=== PATIENT | male | born 1950 | race Caucasian/White ===

== ENCOUNTER → 2017-09-12 08:56 | Outpatient (CLI) | payer MEDICARE, SELFPAY ==
[2017-09-12 12:27] LABS: Cholesterol 140 mg/dL (200); Hemoglobin A1c 7.2 % (4.2-6.3); High Density Lipoprotein 31 mg/dL; Triglycerides 148 mg/dL; Very Low Density Lipoprotein 30 mg/dL (5-40)
== END ==
PROVIDERS: Family Provider Family Medicine; PCP Family Medicine; Visit Provider Family Medicine
DX: E11.29 Type 2 diabetes mellitus with other diabetic kidney complication (principal)
CPT/HCPCS: 36415; 80061; 83036

== ENCOUNTER → 2017-10-27 14:58 | Outpatient (CLI) | payer MEDICARE, SELFPAY ==
[2017-10-27 18:05] LABS: Hematocrit 44.2 % (40-54); Hemoglobin 13.6 g/dl (13.0-16.5); Mean Corp Hgb Conc 30.8 g/gl (32-36); Mean Corpuscular Hgb 31.1 pg (27.0-32.0); Mean Corpuscular Volume 100.9 fL (80-94); Mean Platelet Vol. 12.1 fl (6.2-12.0); Platelet Count 189 K/mm3 (150-450); RBC Distribution Width CV 13.3 % (11.6-14.6); RBC Distribution Width SD 49.5 fl (35.1-43.9); Red Blood Count 4.38 M/mm3 (4.6-6.2); White Blood Count 7.4 K/mm3 (4.4-11.0)
[2017-10-27 18:18] LABS: Scan Indicated on CBC? Y/N NO
[2017-10-27 18:21] LABS: Vitamin D,25 Hydroxy 23.1 ng/mL (29.95-100.01)
[2017-10-27 18:25] LABS: Albumin, Serum 4.2 g/dL (3.2-5.0); BUN 23 mg/dL (7-18); BUN/Creat Ratio 16.1 RATIO (10-20); Calcium,Total 8.9 mg/dL (8.5-10.1); Chloride 102 mmol/L (98-107); Creatinine, Serum 1.43 mg/dL (0.70-1.30); EST Glomerular Filtration Rate 53 mL/min (>60); Est Glom Filt Rate - Afr Amer 64 mL/min (>60); Glucose 145 mg/dL (74-106); PTHIN 138.4 pg/mL (18.4-80.1); Phosphorus 2.8 mg/dL (2.5-4.9); Sodium Level 140 mmol/L (136-145)
[2017-10-27 18:26] LABS: Protein, Urine (Random) 39.1 mg/dL (<11.9); Protein:Creat Ratio 149 mg/g CRE (0-200)
== END ==
PROVIDERS: Family Provider Family Medicine; PCP Family Medicine; Visit Provider Internal Medicine Nephrology
DX: N18.3 Chronic kidney disease, stage 3 (moderate) (principal); N25.81 Secondary hyperparathyroidism of renal origin
CPT/HCPCS: 36415; 80069; 82306; 82570; 83970; 84156; 85027

== ENCOUNTER → 2018-07-29 14:25 | Outpatient (CLI) | payer MEDICARE, SELFPAY ==
[2018-07-29 15:57] LABS: Absolute Neutrophil Count 5.9 X10^3/uL (2.0-7.7); Basophil# 0.01 X10^3/uL; Basophil% 0.1 % (0-1); Eosinophil# 0.45 X10^3/uL; Eosinophils% 5.6 % (0-5); Hematocrit 44.1 % (40-54); Hemoglobin 13.9 g/dl (13.0-16.5); Lymphocyte % 14.9 % (19-41); Mean Corp Hgb Conc 31.5 g/gl (32-36); Mean Corpuscular Hgb 31.7 pg (27.0-32.0); Mean Corpuscular Volume 100.7 fL (80-94); Mean Platelet Vol. 12.3 fl (6.2-12.0); Monocyte# 0.53 X10^3/uL; Monocyte% 6.6 % (0-10); Neutrophil # 5.87 X10^3/uL (2.7-7.7); Neutrophil % 72.6 % (47-70); Platelet Count 171 K/mm3 (150-450); RBC Distribution Width SD 47.5 fl (35.1-43.9); Red Blood Count 4.38 M/mm3 (4.6-6.2); White Blood Count 8.1 K/mm3 (4.4-11.0)
[2018-07-29 16:07] LABS: Protein, Urine (Random) 18.8 mg/dL (<11.9); Protein:Creat Ratio 154 mg/g CRE (0-200)
[2018-07-29 16:17] LABS: POSITIVE COUNT NO; POSITIVE DIFFERENTIAL NO; POSITIVE MORPHOLOGY NO
[2018-07-29 16:27] LABS: Albumin, Serum 4.3 g/dL (3.2-5.0); BUN 25 mg/dL (7-18); BUN/Creat Ratio 15.7 RATIO (10-20); Calcium,Total 9.1 mg/dL (8.5-10.1); Chloride 107 mmol/L (98-107); Creatinine, Serum 1.59 mg/dL (0.70-1.30); EST Glomerular Filtration Rate 46 mL/min (>60); Est Glom Filt Rate - Afr Amer 56 mL/min (>60); Glucose 203 mg/dL (74-106); Phosphorus 2.5 mg/dL (2.5-4.9); Potassium 3.8 mmol/L (3.5-5.1); Sodium Level 141 mmol/L (136-145)
[2018-07-29 16:45] LABS: PTHIN 103.5 pg/mL (18.4-80.1)
[2018-07-29 16:47] LABS: Vitamin D,25 Hydroxy 27.9 ng/mL (29.95-100.01)
== END ==
PROVIDERS: Family Provider Family Medicine; PCP Family Medicine; Visit Provider Internal Medicine Nephrology
DX: N18.3 Chronic kidney disease, stage 3 (moderate) (principal); N25.81 Secondary hyperparathyroidism of renal origin
CPT/HCPCS: 36415; 80069; 82306; 82570; 83970; 84156; 85025

== ENCOUNTER → 2019-03-10 09:14 | Outpatient (CLI) | payer MEDICARE, SELFPAY ==
[2019-03-10 12:36] LABS: Cholesterol 148 mg/dL (200); High Density Lipoprotein 40 mg/dL; Triglycerides 209 mg/dL; Very Low Density Lipoprotein 42 mg/dL (5-40)
== END ==
PROVIDERS: Family Provider Family Medicine; PCP Family Medicine; Visit Provider Family Medicine
DX: Z00.01 Encounter for general adult medical examination with abnormal findings (principal); I12.9 Hypertensive chronic kidney disease with stage 1 through stage 4 chronic kidney disease, or unspecified chronic kidney disease; E11.22 Type 2 diabetes mellitus with diabetic chronic kidney disease; N18.3 Chronic kidney disease, stage 3 (moderate); E11.29 Type 2 diabetes mellitus with other diabetic kidney complication; E78.5 Hyperlipidemia, unspecified; E66.9 Obesity, unspecified
CPT/HCPCS: 36415; 80061

== ENCOUNTER → 2019-05-07 11:12 | Outpatient (CLI) | payer MEDICARE, SELFPAY ==
[2019-05-07 11:47] LABS: Hematocrit 43.4 % (40-54); Hemoglobin 13.6 g/dL (13.0-16.5); Mean Corp Hgb Conc 31.3 g/dL (32-36); Mean Corpuscular Hgb 32.2 pg (27.0-32.0); Mean Corpuscular Volume 102.8 fL (80-94); Mean Platelet Vol. 11.8 fl (6.2-12.0); Platelet Count 160 K/mm3 (150-450); RBC Distribution Width CV 12.4 % (11.6-14.6); RBC Distribution Width SD 46.7 fl (35.1-43.9); Red Blood Count 4.22 M/mm3 (4.6-6.2); White Blood Count 7.5 K/mm3 (4.4-11.0)
[2019-05-07 11:59] LABS: Protein, Urine (Random) 34.8 mg/dL (<11.9); Protein:Creat Ratio 156 mg/g CRE (0-200)
[2019-05-07 12:16] LABS: Albumin, Serum 3.9 g/dL (3.2-5.0); BUN 22 mg/dL (7-18); BUN/Creat Ratio 13.2 RATIO (10-20); Calcium,Total 8.7 mg/dL (8.5-10.1); Chloride 108 mmol/L (98-107); Creatinine, Serum 1.67 mg/dL (0.70-1.30); EST Glomerular Filtration Rate 44 mL/min (>60); Est Glom Filt Rate - Afr Amer 53 mL/min (>60); Glucose 168 mg/dL (74-106); Phosphorus 2.6 mg/dL (2.5-4.9); Potassium 4.2 mmol/L (3.5-5.1); Sodium Level 142 mmol/L (136-145)
[2019-05-07 12:26] LABS: PTHIN 144.8 pg/mL (18.4-80.1); Vitamin D,25 Hydroxy 35.4 ng/mL (29.95-100.01)
== END ==
PROVIDERS: Family Provider Family Medicine; PCP Family Medicine; Referring Provider Internal Medicine Nephrology; Visit Provider Internal Medicine Nephrology
DX: N18.3 Chronic kidney disease, stage 3 (moderate) (principal); N25.81 Secondary hyperparathyroidism of renal origin
CPT/HCPCS: 36415; 80069; 82306; 82570; 83970; 84156; 85027

== ENCOUNTER → 2019-09-08 09:34 | Outpatient (CLI) | payer MEDICARE, SELFPAY ==
[2019-09-08 12:36] LABS: Cholesterol 162 mg/dL (200); High Density Lipoprotein 33 mg/dL; Triglycerides 240 mg/dL; Very Low Density Lipoprotein 48 mg/dL (5-40)
[2019-09-08 12:53] LABS: Hemoglobin A1c 11.2 % (4.2-6.3)
== END ==
PROVIDERS: Family Provider Family Medicine; PCP Family Medicine; Visit Provider Family Medicine
DX: E11.29 Type 2 diabetes mellitus with other diabetic kidney complication (principal); E78.5 Hyperlipidemia, unspecified
CPT/HCPCS: 36415; 80061; 83036

== ENCOUNTER → 2020-01-24 13:30 | Outpatient (CLI) | payer MEDICARE, SELFPAY ==
[2020-01-24 15:25] LABS: Hematocrit 41.3 % (40-54); Hemoglobin 13.1 g/dL (13.0-16.5); Mean Corp Hgb Conc 31.7 g/dL (32-36); Mean Corpuscular Hgb 32.4 pg (27.0-32.0); Mean Corpuscular Volume 102.2 fL (80-94); Mean Platelet Vol. 12.8 fl (6.2-12.0); Platelet Count 181 K/mm3 (150-450); RBC Distribution Width SD 49.1 fl (35.1-43.9); Red Blood Count 4.04 M/mm3 (4.6-6.2); White Blood Count 6.7 K/mm3 (4.4-11.0)
[2020-01-24 15:36] LABS: Vitamin D,25 Hydroxy 39.8 ng/mL
[2020-01-24 15:45] LABS: Protein, Urine (Random) 27.9 mg/dL (<11.9); Protein:Creat Ratio 111 mg/g CRE (0-200)
[2020-01-24 15:51] LABS: Albumin, Serum 4.3 g/dL (3.2-5.0); BUN 37 mg/dL (7-18); BUN/Creat Ratio 19.1 RATIO (10-20); Calcium,Total 9.2 mg/dL (8.5-10.1); Chloride 105 mmol/L (98-107); Creatinine, Serum 1.94 mg/dL (0.70-1.30); EST Glomerular Filtration Rate 37 mL/min (>60); Est Glom Filt Rate - Afr Amer 44 mL/min (>60); Glucose 188 mg/dL (74-106); Phosphorus 2.7 mg/dL (2.5-4.9); Potassium 3.9 mmol/L (3.5-5.1); Sodium Level 141 mmol/L (136-145)
[2020-01-24 16:43] LABS: PTHIN 158.1 pg/mL (18.4-80.1)
== END ==
PROVIDERS: PCP Family Medicine; Visit Provider Internal Medicine Nephrology
DX: N18.3 Chronic kidney disease, stage 3 (moderate) (principal); N25.81 Secondary hyperparathyroidism of renal origin
CPT/HCPCS: 36415; 80069; 82306; 82570; 83970; 84156; 85027

== ENCOUNTER → 2020-08-12 09:04 | Outpatient (CLI) | payer MEDICARE, SELFPAY ==
[2020-08-12 09:47] LABS: Protein, Urine (Random) 27.1 mg/dL (<11.9); Protein:Creat Ratio 132 mg/g CRE (0-200)
[2020-08-12 09:48] LABS: Anion Gap 5 (5-15); BUN 35 mg/dL (7-18); BUN/Creat Ratio 18.7 RATIO (10-20); Chloride 105 mmol/L (98-107); Creatinine, Serum 1.87 mg/dL (0.70-1.30); EST Glomerular Filtration Rate 38 mL/min (>60); Est Glom Filt Rate - Afr Amer 46 mL/min (>60); Glucose 169 mg/dL (74-106); Potassium 3.2 mmol/L (3.5-5.1); Sodium Level 143 mmol/L (136-145)
== END ==
PROVIDERS: PCP Family Medicine; Referring Provider Internal Medicine Nephrology; Visit Provider Internal Medicine Nephrology
DX: N18.30 Chronic kidney disease, stage 3 unspecified (principal)
CPT/HCPCS: 36415; 80048; 82570; 84156

== ENCOUNTER → 2020-09-12 11:37 | Outpatient (CLI) | payer MEDICARE, SELFPAY ==
[2020-09-12 15:40] LABS: Cholesterol 157 mg/dL (200); High Density Lipoprotein 34 mg/dL; Triglycerides 243 mg/dL; Very Low Density Lipoprotein 49 mg/dL (5-40)
== END ==
PROVIDERS: PCP Family Medicine; Visit Provider Family Medicine
DX: E11.29 Type 2 diabetes mellitus with other diabetic kidney complication (principal); I10 Essential (primary) hypertension
CPT/HCPCS: 36415; 80061; 83036

== ENCOUNTER 2020-10-27 15:11 | Outpatient (RCR) | payer MEDICARE, SELFPAY ==
[2020-10-27] MEDS: COVID-19 VACC, MRNA(PFIZER)/PF 30 MCG/0.3 ML SYRINGE IM (12:09)
[2020-11-17] MEDS: COVID-19 VACC, MRNA(PFIZER)/PF 30 MCG/0.3 ML SYRINGE IM (12:02)
== END 2020-10-27 23:59 ==
LOC: IMMUN 15:11
PROVIDERS: PCP Family Medicine; Visit Provider Family Medicine
DX: Z23 Encounter for immunization (principal)
CPT/HCPCS: 0001A; 0002A; 91300

== ENCOUNTER → 2020-12-13 13:02 | Outpatient (CLI) | payer MEDICARE, SELFPAY ==
[2020-12-13 15:33] LABS: Hemoglobin A1c 7.9 % (3.8-5.6)
== END ==
PROVIDERS: PCP Family Medicine; Referring Provider Family Medicine; Visit Provider Family Medicine
DX: E11.29 Type 2 diabetes mellitus with other diabetic kidney complication (principal)
CPT/HCPCS: 36415; 83036

== ENCOUNTER → 2022-04-25 | Outpatient (CLI) | payer MEDICARE, SELFPAY ==
[2022-04-25 12:12] LABS: Hematocrit 43.8 % (40-54); Mean Corpuscular Hgb 32.2 pg (27.0-32.0); Mean Corpuscular Volume 100.7 fL (80-94); Mean Platelet Vol. 12.5 fl (6.2-12.0); Platelet Count 193 K/mm3 (150-450); RBC Distribution Width CV 13.2 % (11.6-14.6); RBC Distribution Width SD 49.9 fl (35.1-43.9); Red Blood Count 4.35 M/mm3 (4.6-6.2); White Blood Count 8.4 K/mm3 (4.4-11.0)
[2022-04-25 12:57] LABS: PTHIN 124.4 pg/mL (18.4-80.1)
[2022-04-25 12:58] LABS: Protein:Creat Ratio 142 mg/g CRE (0-200)
[2022-04-25 12:59] LABS: Albumin, Serum 3.8 g/dL (3.2-5.0); BUN 29 mg/dL (7-18); BUN/Creat Ratio 16.3 RATIO (10-20); Calcium,Total 9.2 mg/dL (8.5-10.1); Chloride 103 mmol/L (98-107); Creatinine, Serum 1.78 mg/dL (0.70-1.30); EST Glomerular Filtration Rate 40 mL/min (>60); Est Glom Filt Rate - Afr Amer 49 mL/min (>60); Glucose 152 mg/dL (74-106); Phosphorus 2.3 mg/dL (2.5-4.9); Potassium 3.7 mmol/L (3.5-5.1); Sodium Level 141 mmol/L (136-145)
== END | disposition home or self-care (01) ==
LOC: MTLAB 10:22
PROVIDERS: PCP Family Medicine; Referring Provider Internal Medicine Nephrology; Visit Provider Internal Medicine Nephrology
DX: N18.32 Chronic kidney disease, stage 3b (principal); N25.81 Secondary hyperparathyroidism of renal origin
CPT/HCPCS: 36415; 80069; 82306; 82570; 83970; 84156; 85027

== ENCOUNTER → 2023-04-11 | Outpatient (CLI) | payer MEDICARE, SELFPAY ==
[2023-04-11 14:58] LABS: Hematocrit 42.5 % (40-54); Hemoglobin 13.7 g/dL (13.0-16.5); Mean Corp Hgb Conc 32.2 g/dL (32-36); Mean Corpuscular Hgb 32.9 pg (27.0-32.0); Mean Corpuscular Volume 102.2 fL (80-94); Mean Platelet Vol. 12.3 fl (6.2-12.0); Platelet Count 214 K/mm3 (150-450); RBC Distribution Width CV 13.6 % (11.6-14.6); RBC Distribution Width SD 51.4 fl (35.1-43.9); Red Blood Count 4.16 M/mm3 (4.6-6.2); White Blood Count 11.6 K/mm3 (4.4-11.0)
[2023-04-11 15:22] LABS: Protein, Urine (Random) 42.9 mg/dL (<11.9); Protein:Creat Ratio 93 mg/g CRE (0-200)
[2023-04-11 16:36] LABS: Albumin, Serum 3.9 g/dL (3.2-5.0); BUN 36 mg/dL (7-18); BUN/Creat Ratio 18.6 RATIO (10-20); Calcium,Total 8.8 mg/dL (8.5-10.1); Chloride 105 mmol/L (98-107); Creatinine, Serum 1.94 mg/dL (0.70-1.30); EST Glomerular Filtration Rate 36 mL/min (>60); Est Glom Filt Rate - Afr Amer 44 mL/min (>60); Glucose 196 mg/dL (74-106); Phosphorus 2.3 mg/dL (2.5-4.9); Potassium 4.3 mmol/L (3.5-5.1); Sodium Level 142 mmol/L (136-145)
[2023-04-15 14:47] LABS: Vitamin D,25 Hydroxy 42.7 ng/mL
[2023-04-15 14:59] LABS: PTHIN 162.3 pg/mL (18.4-80.1)
== END | disposition home or self-care (01) ==
LOC: LAB 13:22
PROVIDERS: PCP Family Medicine; Referring Provider Internal Medicine Nephrology; Visit Provider Internal Medicine Nephrology
DX: N25.81 Secondary hyperparathyroidism of renal origin (principal); N18.32 Chronic kidney disease, stage 3b
CPT/HCPCS: 36415; 80069; 82306; 82570; 83970; 84156; 85027

== ENCOUNTER → 2023-12-25 | Outpatient (CLI) | payer MEDICARE, SELFPAY ==
[2023-12-25 12:56] LABS: Cholesterol 150 mg/dL (200); High Density Lipoprotein 35 mg/dL; PSA,Total - Annual Screen 0.66 ng/mL (0.00-4.00); Triglycerides 171 mg/dL; Very Low Density Lipoprotein 34 mg/dL (5-40)
== END | disposition home or self-care (01) ==
LOC: BFHLAB 08:46
PROVIDERS: PCP Family Medicine; Referring Provider Family Medicine; Visit Provider Family Medicine
DX: E11.29 Type 2 diabetes mellitus with other diabetic kidney complication (principal); Z12.5 Encounter for screening for malignant neoplasm of prostate
CPT/HCPCS: 36415; 80061; 84153; G0103

== ENCOUNTER → 2024-04-09 | Outpatient (CLI) | payer MEDICARE, SELFPAY ==
[2024-04-09 09:35] LABS: Hematocrit 41.8 % (40-54); Hemoglobin 13.7 g/dL (13.0-16.5); Mean Corp Hgb Conc 32.8 g/dL (32-36); Mean Corpuscular Hgb 32.5 pg (27.0-32.0); Mean Corpuscular Volume 99.3 fL (80-94); Mean Platelet Vol. 11.3 fl (6.2-12.0); Platelet Count 149 K/mm3 (150-450); RBC Distribution Width CV 13.3 % (11.6-14.6); RBC Distribution Width SD 48.8 fl (35.1-43.9); Red Blood Count 4.21 M/mm3 (4.6-6.2); White Blood Count 7.3 K/mm3 (4.4-11.0)
[2024-04-09 10:04] LABS: Albumin, Serum 3.8 g/dL (3.2-5.0); BUN 41 mg/dL (7-18); BUN/Creat Ratio 19.9 RATIO (10-20); Calcium,Total 9.3 mg/dL (8.5-10.1); Chloride 107 mmol/L (98-107); Creatinine, Serum 2.06 mg/dL (0.70-1.30); EST Glomerular Filtration Rate 34 mL/min (>60); Est Glom Filt Rate - Afr Amer 41 mL/min (>60); Glucose 160 mg/dL (74-106); Phosphorus 2.9 mg/dL (2.5-4.9); Potassium 3.7 mmol/L (3.5-5.1); Sodium Level 141 mmol/L (136-145)
[2024-04-09 10:08] LABS: PTHIN 180.7 pg/mL (18.4-80.1); Vitamin D,25 Hydroxy 31.3 ng/mL
[2024-04-09 10:19] LABS: Protein:Creat Ratio 95 mg/g CRE (0-200)
== END | disposition home or self-care (01) ==
LOC: LAB 08:59
PROVIDERS: PCP Family Medicine; Referring Provider Internal Medicine Nephrology; Visit Provider Internal Medicine Nephrology
DX: N18.32 Chronic kidney disease, stage 3b (principal); N25.81 Secondary hyperparathyroidism of renal origin
CPT/HCPCS: 36415; 80069; 82306; 82570; 83970; 84156; 85027

== ENCOUNTER → 2025-05-09 | Outpatient (CLI) | payer MEDICARE, SELFPAY ==
[2025-05-09 14:35] LABS: Hematocrit 42.9 % (40-54); Hemoglobin 13.7 g/dL (13.0-16.5); Mean Corp Hgb Conc 31.9 g/dL (32-36); Mean Corpuscular Volume 101.2 fL (80-94); Mean Platelet Vol. 12.1 fl (6.2-12.0); Platelet Count 177 K/mm3 (150-450); RBC Distribution Width CV 13.3 % (11.6-14.6); RBC Distribution Width SD 49.3 fl (35.1-43.9); Red Blood Count 4.24 M/mm3 (4.6-6.2); White Blood Count 7.7 K/mm3 (4.4-11.0)
[2025-05-09 15:10] LABS: Creatinine, Urine (random) 138.00 mg/dL (39.00-259.00); Protein, Urine (Random) 16.2 mg/dL (0.0-12.0); Protein:Creat Ratio 117 mg/g CRE (0-200)
[2025-05-09 15:11] LABS: Albumin, Serum 4.0 g/dL (3.4-4.8); Anion Gap 13 (5-15); BUN 37 mg/dL (4-19); BUN/Creat Ratio 20.7 RATIO (10-20); Calcium,Total 9.3 mg/dL (7.6-11.0); Carbon Dioxide 25.9 mmol/L (21.0-32.0); Chloride 103 mmol/L (98-108); Glucose 299 mg/dL (70-99); Potassium 4.1 mmol/L (3.3-5.1)
== END | disposition home or self-care (01) ==
LOC: LAB 13:07
PROVIDERS: PCP Family Medicine; Referring Provider Internal Medicine Nephrology; Visit Provider Internal Medicine Nephrology
DX: N18.32 Chronic kidney disease, stage 3b (principal)
CPT/HCPCS: 36415; 80069; 82570; 84156; 85027